=== PATIENT | female | born 1985 | race Caucasian/White ===

== ENCOUNTER 2020-01-18 18:52 | Emergency (ER) | payer SELFPAY ==
[2020-01-18 19:04] VITALS: BP 151/89; PULSE 87; TEMP 99.9; BMI 46.5
--- NOTE | 2020-01-18 19:25 | PDOC ---
History of Present Illness - General Chief Complaint: Lightheaded Stated Complaint: DIZZINESS, VOMITING Time Seen by Provider: 01/18/20 19:24 History Source: Patient Exam Limitations: No Limitations - History of Present Illness Initial Comments: 01/18/20 19:56 This is a 34-year-old morbidly obese female who comes in complaining of acute intermittent porphyria. Patient is complaining of nausea and severe abdominal pain. Patient is insistent that she is unable to cooperate with any requests until she is given 2 mg of Dilaudid IM and some oral dissolving Zofran. Patient however came in without any ID and has changed her story multiple times depending upon which staff she is talking to. I told patient that she would be unable to receive any narcotic pain medication and Tylenol I was able to have a valid ID and was required to make sure I was able to identify anyone that it was giving narcotics to that she informed me she required large amount of narcotics. Patient said if I was unable to give her any narcotics that she wanted to leave and got up and left. Past History - Medical History Allergies/Adverse Reactions: Allergies Allergy/AdvReac Type Severity Reaction Status Date / Time No Known Allergies Allergy Unverified 01/18/20 19:47 Asthma: Yes COPD: No Other medical history: PORPHYRIA - Reproductive History Is Patient Now?: No - Immunization History Immunization Up to Date: Yes - Psycho-Social/Smoking History Smoking History: Never smoked Have you smoked in the past 12 months: No Information on smoking cessation initiated: No - Substance Abuse Hx (Audit-C & DAST Scrn) How often the patient has a drink containing alcohol: Never Score: In Men: 4 or > Positive; In Women: 3 or > Positive: 0 Screen Result (Pos requires Nsg. Audit-10AR): Negative In the last yr the pt used illegal drug/Rx for NonMed reason: No Score: Yes response is considered Positive: 0 Screen Result (Positive result requires Nsg. DAST-10): Negative *Physical Exam - Vital Signs Last Vital Signs Temp Pulse Resp BP Pulse Ox 99.9 F H 87 20 151/89 100 01/18/20 18:56 01/18/20 18:56 01/18/20 18:56 01/18/20 18:56 01/18/20 18:56 Discharge - Discharge Information Problems reviewed: Yes Clinical Impression/Diagnosis: Drug-seeking behavior Condition: Stable Disposition: LEFT BEFORE MED [facility]RAL RM - Follow up/Referral - Patient Discharge Instructions - Post Discharge Activity
== END 2020-01-18 20:06 | disposition left against medical advice (07) ==
LOC: FER 18:52
DX: Z72.89 Other problems related to lifestyle (principal)
CPT/HCPCS: 99281-25